=== PATIENT | male | born 1995 ===

== ENCOUNTER 2023-04-04 19:51 | Emergency (ER) | payer OTHER ==
[2023-04-04 20:51] LABS: Specific Gravity 1.024 (1.005-1.030); Urine Bilirubin NEGATIVE (Negative); Urine Blood Negative (Negative); Urine Clarity Clear (Clear); Urine Color Light-Yellow (Yellow); Urine Glucose NEGATIVE (Negative); Urine Protein NEGATIVE (Negative); Urine Urobilinogen Normal (Normal); Urine pH 6.5 (5.0-7.0)
[2023-04-04 21:05] LABS: Albumin 3.9 g/dL (3.4-5.0); Bilirubin Total 0.6 mg/dL (0.2-1.0); Protein, Total 7.4 g/dL (6.4-8.2)
[2023-04-04 21:08] LABS: Potassium 3.7 mEq/L (3.5-5.1)
[2023-04-04 21:13] LABS: Absolute Lymphocytes (CBC) 3.1 K/uL (0.7-4.9); Hematocrit 46.7 % (39.6-49.0); Lymphocytes % 45.8 % (15.3-44.8); MCV 90.9 fL (80-100); MPV 9.7 fL (7.6-11.3); RBC Red Blood Cell Count 5.14 M/uL (4.33-5.43)
--- NOTE | 2023-04-04 22:07 | RAD REPORT ---
EXAM DESCRIPTION: CT - Abdomen Pelvis W Contrast - 04/04/2023 9:23 pm CLINICAL HISTORY: Abdominal pain / right lower quadrant pain COMPARISON: none. TECHNIQUE: Computed axial tomography of the abdomen pelvis was obtained. 100 cc Isovue-300 was admin istered intravenously. Oral contrast was not requested which limits evaluation of bowel and appendix All CT scans are performed using dose optimization technique as appropriate and may include automated exposure control or mA/KV adjustment according to patient size. FINDINGS: The liver, spleen, pancreas, adrenal and kidneys appear unremarkable. There is no evidence of diverticulitis. Normal appendix IMPRESSION: No acute abnormality is displayed.
[2023-04-04] MEDS ORDERED: KETOROLAC 30 MG/ML INJ ONE (22:21)
--- NOTE | 2023-04-04 22:33 | ER ---
Nurse's Notes [facility] Name: Chay Holman Age: 27 yrs Sex: Male : 1995 Arrival Date: 04/04/2023 Time: 19:51 Bed 14 Private MD: Diagnosis: Lower abdominal pain, unspecified Presentation: 04/04 20:01 Chief complaint: Patient states: "I am having some abdominal pain and the nurse on the as6 phone told me to come here because it might be my appendix" pain started 1 week ago. Coronavirus screen: At this time, the client does not indicate any symptoms associated with coronavirus-19. Ebola Screen: No symptoms or risks identified at this time. Initial Sepsis Screen: Does the patient meet any 2 criteria? No. Patient's initial sepsis screen is negative. Does the patient have a suspected source of infection? No. Patient's initial sepsis screen is negative. Risk Assessment: Do you want to hurt yourself or someone else? Patient reports no desire to harm self or others. Onset of symptoms was March 28, 2023. 20:01 Method Of Arrival: Ambulatory as6 20:01 Acuity: BASILIO 3 as6 Historical: - Allergies: 20:04 No Known Allergies; as6 - Home Meds: 20:04 None [Active]; as6 - PMHx: 20:04 None; as6 - PSHx: 20:04 None; as6 - Immunization history:: Client reports having NOT received the Covid vaccine. - Social history:: Smoking status: Patient denies any tobacco usage or history of. Screenin:30 [facility] ED Fall Risk Assessment (Adult) History of falling in the last 3 months, nj1 including since admission No falls in past 3 months (0 pts) Confusion or Disorientation No (0 pts) Intoxicated or Sedated No (0 pts) Impaired Gait No (0 pts) Mobility Assist Device Used No (0 pt) Altered Elimination No (0 pt) Score/Fall Risk Level 0 - 2 = Low Risk Oriented to surroundings, Maintained a safe environment, Hourly rounding (assess needs \\T\\ fall precautionary measures) done. 20:30 Abuse screen: Denies threats or abuse. Denies injuries from another. Nutritional nj1 screening: No deficits noted. Tuberculosis screening: No symptoms or risk factors identified. Assessment: 20:30 General: Appears in no apparent distress. comfortable, Behavior is calm, cooperative, nj1 appropriate for age. 20:30 Pain: Denies pain. Neuro: Level of Consciousness is awake, alert, obeys commands, nj1 Oriented to person, place, time, situation. Cardiovascular: Patient's skin is warm and dry. Respiratory: Airway is patent Respiratory effort is even, unlabored. GI: Reports right lower quadrant abdominal "pressure", states "it is not pain, it is just pressure" Patient currently denies diarrhea, nausea, vomiting. 21:07 Reassessment: Patient appears in no apparent distress at this time. Patient and/or jb4 family updated on plan of care and expected duration. Pain level reassessed. Patient is alert, oriented x 3, equal unlabored respirations, skin warm/dry/pink. 22:30 Reassessment: Patient appears in no apparent distress at this time. Patient and/or jb4 family updated on plan of care and expected duration. Pain level reassessed. Patient is alert, oriented x 3, equal unlabored respirations, skin warm/dry/pink. Vital Signs: 20:01 BP 135 / 79; Pulse 60; Resp 18 S; Temp 98.1(O); Pulse Ox 96% on R/A; Weight 83.91 kg as6 (R); Height 5 ft. 5 in. (R); Pain 2/10; 21:07 BP 122 / 80; Pulse 74; Resp 16; Pulse Ox 97% on R/A; jb4 20:01 Body Mass Index 30.79 (83.91 kg, 165.1 cm) as6 20:01 Pain Scale: Adult as6 ED Course: 19:58 Patient arrived in ED. ag3 20:02 Damion Beaulieu PA is PHCP. cp 20:02 Aldo Thurston MD is Attending Physician. cp 20:04 Triage completed. as6 20:05 Arm band placed on. as6 20:08 [address] [facility], OMAR is Primary Nurse. nj1 20:30 Patient has correct armband on for positive identification. Bed in low position. Call nj1 light in reach. Adult w/ patient. 20:34 Inserted saline lock: 20 gauge in right antecubital area, using aseptic technique. mb9 21:25 CT Abd/Pelvis - IV Contrast Only In Process Unspecified. EDMS 22:43 No provider procedures requiring assistance completed. IV discontinued, intact, jb4 bleeding controlled, No redness/swelling at site. Pressure dressing applied. Administered Medications: 22:19 Drug: Ketorolac IVP 15 mg Route: IVP; Site: right antecubital; jb4 Medication: 22:43 VIS not applicable for this client. jb4 Outcome: 22:32 Discharge ordered by MD. cp 22:43 Discharged to home ambulatory, with significant other. jb4 22:43 Condition: stable 22:43 Discharge instructions given to patient, Instructed on discharge instructions, follow up and referral plans. medication usage, Demonstrated understanding of instructions, follow-up care, medications, Prescriptions given X 1. 22:43 Patient left the ED. jb4 Signatures: Dispatcher [employer] EDMS Damion Beaulieu PA PA cp Bryson, James, RN RN jb4 Nely Madera3 Jai Parker RN RN as6 Radha Cameron RN RN mb9 Ave Mcleod RN RN nj1 Corrections: (The following items were deleted from the chart) 20:05 20:04 PMHx: None; as6 as6 21:04 20:30 GI: Reports right lower quadrant abdominal "pressure", states "it is not pain, it nj1 is just pressure" nj1
--- NOTE | 2023-04-04 22:33 | EDPHYS ---
Physician Documentation [facility] Name: Chay Holman Age: 27 yrs Sex: Male : 1995 Arrival Date: 04/04/2023 Time: 19:51 Bed 14 Private MD: ED Physician Aldo Thurston HPI: 04/04 21:00 This 27 yrs old Male presents to ER via Ambulatory with complaints of Abdominal Pain. cp 21:00 The patient presents with abdominal pain right lower quadrant. cp 21:00 Onset: The symptoms/episode began/occurred 1 week(s) ago, intermittent. cp 21:00 The symptoms radiate to the right flank, right groin. Associated signs and symptoms: cp Pertinent negatives: diarrhea, dysuria, fever, hematuria, vomiting. The symptoms are described as intermittent, waxing/waning. Historical: - Allergies: 20:04 No Known Allergies; as6 - Home Meds: 20:04 None [Active]; as6 - PMHx: 20:04 None; as6 - PSHx: 20:04 None; as6 - Immunization history:: Client reports having NOT received the Covid vaccine. - Social history:: Smoking status: Patient denies any tobacco usage or history of. ROS: 21:05 Constitutional: Negative for body aches, chills, fever, poor PO intake. cp 21:05 Eyes: Negative for injury, pain, redness, and discharge. cp 21:05 ENT: Negative for drainage from ear(s), ear pain, sore throat, difficulty swallowing, difficulty handling secretions. 21:05 Respiratory: Negative for cough, shortness of breath, wheezing. 21:05 Abdomen/GI: Positive for abdominal pain, of the right lower quadrant, Negative for vomiting, diarrhea, constipation. 21:05 Back: Positive for flank pain, on the right. 21:05 : Negative for urinary symptoms. 21:05 All other systems are negative. Exam: 21:10 Constitutional: The patient appears in no acute distress, alert, awake, comfortable, cp non-toxic, well developed, well nourished. 21:10 Head/Face: Normocephalic, atraumatic. cp 21:10 Eyes: Periorbital structures: appear normal, Conjunctiva: normal, no exudate, no injection, Sclera: no appreciated abnormality, Lids and lashes: appear normal, bilaterally. 21:10 ENT: External ear(s): are unremarkable, Nose: is normal, Mouth: Lips: moist, Oral mucosa: pink and intact, moist, Posterior pharynx: is normal, airway is patent, no erythema, no exudate. 21:10 Chest/axilla: Inspection: normal. 21:10 Cardiovascular: Rate: normal, Rhythm: regular. 21:10 Respiratory: the patient does not display signs of respiratory distress, Respirations: normal, no use of accessory muscles, no retractions, labored breathing, is not present, Breath sounds: are clear throughout, no decreased breath sounds, no stridor, no wheezing. 21:10 Abdomen/GI: Inspection: abdomen appears normal, Bowel sounds: active, all quadrants, Palpation: soft, in all quadrants, mild abdominal tenderness, in the right lower quadrant, rebound tenderness, is not appreciated, involuntary guarding, is not appreciated. 21:10 Back: CVA tenderness, is absent. 21:10 Skin: no rash present. 21:10 Neuro: Orientation: to person, place \T\ time. Mentation: is normal, Motor: moves all fours, strength is normal, Sensation: is normal. Vital Signs: 20:01 BP 135 / 79; Pulse 60; Resp 18 S; Temp 98.1(O); Pulse Ox 96% on R/A; Weight 83.91 kg as6 (R); Height 5 ft. 5 in. (R); Pain 2/10; 21:07 BP 122 / 80; Pulse 74; Resp 16; Pulse Ox 97% on R/A; jb4 20:01 Body Mass Index 30.79 (83.91 kg, 165.1 cm) as6 20:01 Pain Scale: Adult as6 MDM: 20:06 Patient medically screened. cp 21:00 Differential diagnosis: appendicitis, Pyelonephritis, Testicular Torsion, cp Ureterolithiasis, urinary tract infection. 22:31 Data reviewed: vital signs, nurses notes, lab test result(s), radiologic studies, CT cp scan. 22:31 I considered the following discharge prescriptions or medication management in the emergency department Medications were administered in the Emergency Department. See MAR. 22:31 Counseling: I had a detailed discussion with the patient and/or guardian regarding: the historical points, exam findings, and any diagnostic results supporting the discharge/admit diagnosis, lab results, radiology results, to return to the emergency department if symptoms worsen or persist or if there are any questions or concerns that arise at home. Special discussion: Based on the patient's Hx, exam, and Dx evaluation, there is no indication for emergent surgery or inpatient Tx. It is understood by the patient/guardian that if the Sx's persist or worsen they need to return immediately for re-evaluation. 04/04 20:15 Order name: CBC with Diff; Complete Time: 21:33 cp 04/04 21:33 Interpretation: Normal except: LYM% 45.8. cp 04/04 20:15 Order name: CMP; Complete Time: 21:33 cp 04/04 21:33 Interpretation: Normal except: CL 109; GLUC 108. 04/04 20:15 Order name: Lipase; Complete Time: 21:33 cp 04/04 20:15 Order name: Urinalysis w/ reflexes; Complete Time: 21:33 cp 04/04 21:33 Interpretation: Reviewed. 04/04 20:15 Order name: CT Abd/Pelvis - IV Contrast Only; Complete Time: 22:09 cp 04/04 22:09 Interpretation: Report reviewed. 04/04 20:15 Order name: IV Saline Lock; Complete Time: 20:34 cp 04/04 20:15 Order name: Labs collected and sent; Complete Time: 20:34 cp Administered Medications: 22:19 Drug: Ketorolac IVP 15 mg Route: IVP; Site: right antecubital; jb4 Disposition Summary: 04/04/23 22:32 Discharge Ordered Location: Home cp Problem: new cp Symptoms: have improved cp Condition: Stable cp Diagnosis - Lower abdominal pain, unspecified cp Followup: cp - With: Private Physician - When: 1 - 2 days - Reason: pain continues Discharge Instructions: - Discharge Summary Sheet cp - Abdominal Pain, Adult cp Forms: - Medication Reconciliation Form cp - Thank You Letter cp - Antibiotic Education cp - Prescription Opioid Use cp Prescriptions: - Diclofenac Sodium 75 mg Oral tablet,delayed release (DR/EC) - take 1 tablet by ORAL route 2 times per day; 20 tablet; Refills: 0, Product cp Selection Permitted Addendum: 04/06/2023 20:02 Co-signature as Attending Physician, Aldo Thurston MD I reviewed the patient's care r n provided by the Advanced Practice Provider and agree with the diagnosis and treatment plan. Signatures: Dispatcher [employer] Aldo Carver MD MD rn Page, Corey, PA PA cp Bryson, James, RN RN jb4 Jai Parker RN RN as6 Corrections: (The following items were deleted from the chart) 04/04 20:05 20:04 PMHx: None; as6 as6
[2023-04-04 23:57] VITALS: BP 122/80; TEMP 98.1; O2SAT 97
== END 2023-04-04 22:43 | disposition home or self-care (01) ==
LOC: ER 19:51
DX: R10.31 Right lower quadrant pain (principal)
CPT/HCPCS: 85025; 36415; 81003; 83690; 80053; 74177; 96374; 99284; Q9967